=== PATIENT | male | born 1950 | race Caucasian/White ===

== ENCOUNTER 2021-04-12 10:39 | Emergency (ER) | payer MEDICARE ==
[2021-04-12 11:20] LABS: HEMOGLOBIN 14.6 gm/dl (14.0-17.5); RED BLOOD COUNT 4.81 M/UL (4.20-5.50); WHITE BLOOD COUNT 11.5 K/UL (4.5-11.0)
== END 2021-04-12 17:30 | disposition home or self-care (01) ==
LOC: ER1 10:39
PROVIDERS: Emergency Medicine
DX: C64.1 Malignant neoplasm of right kidney, except renal pelvis (principal); E11.22 Type 2 diabetes mellitus with diabetic chronic kidney disease; N19 Unspecified kidney failure; Z20.822 Contact with and (suspected) exposure to COVID-19
CPT/HCPCS: 80053; 81001; 83690; 85025; 87040; 87086; 96374; 96375; 96376; 99285; J0696; J2270; J2405; U0002

== ENCOUNTER 2021-06-09 10:54 | Emergency (ER) | payer MEDICARE ==
[2021-06-09 14:16] LABS: HEMOGLOBIN 13.1 gm/dl (14.0-17.5); RED BLOOD COUNT 4.44 M/UL (4.20-5.50); WHITE BLOOD COUNT 8.5 K/UL (4.5-11.0)
== END 2021-06-09 18:30 | disposition home or self-care (01) ==
LOC: ER1 10:54
PROVIDERS: Family Medicine
DX: N18.9 Chronic kidney disease, unspecified (principal); R31.9 Hematuria, unspecified; Z88.0 Allergy status to penicillin; Z91.012 Allergy to eggs
CPT/HCPCS: 36415; 80053; 81001; 85025; 85610; 96374; 96375; 99284; J2270; J2405